=== PATIENT | female | born 1945 | race Caucasian/White ===

== ENCOUNTER → 2016-12-23 | Outpatient (CLI) | payer MEDICARE, OTHER ==
--- NOTE | 2016-12-24 10:10 | CR ---
EXAM DATE: 12/23/16 PATIENT'S AGE: 71 Patient: ASHLEIGH CUENCA Facility: [place], [place] Site . Site : 1945 Study: XRay Chest [id number] 4:31:55 PM Ordering Physician: Alisa Amaral Final Report: INDICATION: acute upper respiratory infection, unspecified TECHNIQUE: Chest 2 views COMPARISON: None FINDINGS: Cardiovascular and mediastinum: Heart size and vasculature are normal in caliber and appearance. Mediastinum is within normal limits. Lungs and pleural spaces: No focal consolidation. Hyperinflation. Eventration of the right hemidiaphragm. No sign of pleural effusion. No pneumothorax. Bones and soft tissues: Degenerative changes. IMPRESSION: No acute cardiopulmonary disease. Dictated by Binu Justin MD @ 12/23/2016 11:23:07 PM Dictated by: Binu Justin MD @ 12/23/2016 23:23:19 (Electronic Signature) Report Signed by Proxy. [facility] MED[facility] CENTERQasim
== END ==
LOC: MW.CHIM 15:49
PROVIDERS: ATTEND Internal Medicine
DX: J06.9 Acute upper respiratory infection, unspecified (principal); K21.9 Gastro-esophageal reflux disease without esophagitis; R05 Cough; J34.89 Other specified disorders of nose and nasal sinuses
CPT/HCPCS: 71020; 71020-26; G0463

== ENCOUNTER 2018-10-22 12:20 | Emergency (ER) | payer MEDICARE, OTHER ==
--- NOTE | 2018-10-22 12:29 | EDM.PDOC ---
ED HPI GENERAL MEDICAL PROBLEM - General Chief Complaint: Upper Extremity Injury/Pain Stated Complaint: INJURED HAND Time Seen by Provider: 10/22/18 12:21 Source of Information: Reports: Patient History Limitations: Reports: No Limitations - History of Present Illness INITIAL COMMENTS - FREE TEXT/NARRATIVE: History of present illness: []Patient was shoveling snow 2 days ago the tip of her shovel cut, and a crack in the cement and came to a sudden stop which jerked her right wrist. Patient's wrist started swelling today with increasing pain. Using [id number] topical pain patches without much relief. Review of systems: As per history of present illness and below otherwise all systems reviewed and negative. Past medical history: As per history of present illness and as reviewed below otherwise noncontributory. Surgical history: As per history of present illness and as reviewed below otherwise noncontributory. Social history: No reported history of drug or alcohol abuse. Family history: As per history of present illness and as reviewed below otherwise noncontributory. Physical exam: General: Well developed, well nourished in NAD HEENT: Atraumatic, normocephalic, pupils reactive, negative for conjunctival pallor or scleral icterus, mucous membranes moist, throat clear, neck supple, nontender, trachea midline. Lungs: Clear to auscultation, breath sounds equal bilaterally, chest nontender. Heart: S1S2, regular, negative for clicks, rubs, or JVD. Abdomen: NABS, Soft, nondistended, nontender. Negative for masses or hepatosplenomegaly. Negative for costovertebral tenderness. Pelvis: Stable nontender. Genitourinary: Deferred. Rectal: Deferred. Extremities: Yellow green ecchymosis and Tender over the ulnar aspect of the right lateral wrist, fingers, sensation intact . Neurovascular unremarkable. Neuro: Awake, alert, oriented. Cranial nerves II through XII unremarkable. Cerebellum unremarkable. Motor and sensory unremarkable throughout. Exam nonfocal. Skin:warm and dry Diagnostics: Right wrist x-ray-ND,distal ulnar metaphysis fx Therapeutics: Declined pain medicines, splinted ED Course: Stable Impression: Ulnar shaft fracture Prescriptions: Declined pain medicine prescriptions Plan: follow up orthopedics, Tylenol Motrin for pain Definitive disposition and diagnosis as appropriate pending reevaluation and review of above. Right Wrist Pain Score (Numeric/FACES): 5 - Related Data Allergies Allergy/AdvReac Type Severity Reaction Status Date / Time No Known Allergies Allergy Verified 11/08/14 10:46 Home Meds: Home Meds Acetaminophen [Tylenol] 2 tab PO ASDIRECTED PRN 11/08/14 [History] Lutein/Minerals/Vit A,C & E [Ocuvite] 1 tab PO DAILY 11/08/14 [History] Metoprolol Succinate [Toprol XL] 1 tab PO BRK 11/08/14 [History] Multivitamin [Multi-Vitamin Daily] 1 tab PO DAILY 11/08/14 [History] amLODIPine Besylate [Amlodipine Besylate] 1 tab PO BRK 11/08/14 [History] atorvaSTATin Calcium [Atorvastatin Calcium] 1 tab PO BEDTIME 11/08/14 [History] cycloSPORINE [Restasis] 1 applic EYEBOTH ASDIRECTED 11/08/14 [History] Review of Systems - Review of Systems Review Of Systems: ROS reveals no pertinent complaints other than HPI. ED EXAM, GENERAL - Physical Exam Exam: See Below (see HPI) Course - Vital Signs Last Recorded V/S: Last Vital Signs Temp 97.1 F 10/22/18 12:37 Pulse 73 10/22/18 12:37 Resp 16 10/22/18 12:37 BP 146/56 H 10/22/18 12:37 Pulse Ox 95 10/22/18 12:37 - Orders/Labs/Meds Orders: Active Orders 24 hr Category Date Time Status Splinting [RC] ASDIRECTED Care 10/22/18 13:21 Active Departure - Departure Time of Disposition: 13:23 Disposition: Home, Self-Care 01 Condition: Good Clinical Impression: Ulnar shaft fracture Qualifiers: Encounter type: initial encounter Fracture type: closed Fracture alignment: nondisplaced Laterality: right - Discharge Information *PRESCRIPTION DRUG MONITORING PROGRAM REVIEWED*: Not Applicable *COPY OF PRESCRIPTION DRUG MONITORING REPORT IN PATIENT VIVIANE: Not Applicable Referrals: Munir Cuellar MD [Primary Care Provider] - Ingris Walter MD [Physician] - (Next available appointment) Forms: ED Department Discharge Additional Instructions: The following information is given to patients seen in the emergency department who are being discharged to home. This information is to outline your options for follow-up care. We provide all patients seen in our emergency department with a follow-up referral. The need for follow-up, as well as the timing and circumstances, are variable depending upon the specifics of your emergency department visit. If you don't have a primary care physician on staff, we will provide you with a referral. We always advise you to contact your personal physician following an emergency department visit to inform them of the circumstance of the visit and for follow-up with them and/or the need for any referrals to a consulting specialist. The emergency department will also refer you to a specialist when appropriate. This referral assures that you have the opportunity for follow-up care with a specialist. All of these measure are taken in an effort to provide you with optimal care, which includes your follow-up. Under all circumstances we always encourage you to contact your private physician who remains a resource for coordinating your care. When calling for follow-up care, please make the office aware that this follow-up is from your recent emergency room visit. If for any reason you are refused follow-up, please contact the [facility] Emergency Department at and asked to speak to the emergency department charge nurse. [facility] [address] [place] [id number] - My Orders Last 24 Hours: My Active Orders 10/22/18 13:21 Splinting [RC] ASDIRECTED - Assessment/Plan Last 24 Hours: My Active Orders 10/22/18 13:21 Splinting [RC] ASDIRECTED
--- NOTE | 2018-10-22 13:27 | CR ---
EXAMINATION: Right wrist HISTORY: Pain COMPARISON: None TECHNIQUE: 3 views FINDINGS/IMPRESSION: There is a nondisplaced oblique distal ulnar metadiaphysis fracture. Remaining osseous structures appear osteopenic however intact. The radiocarpal alignment is preserved.
[2018-10-22 13:49] VITALS: BP 133/59
== END 2018-10-22 13:46 | disposition home or self-care (01) ==
LOC: MW.ED 12:20
DX: S52.201A Unspecified fracture of shaft of right ulna, initial encounter for closed fracture (principal); Y93.H1 Activity, digging, shoveling and raking
CPT/HCPCS: 73110-26-RT; 73110-RT; 99283-25

== ENCOUNTER 2019-01-09 11:50 | Emergency (ER) | payer MEDICARE ==
[2019-01-09 12:14] VITALS: BP 138/60
--- NOTE | 2019-01-09 12:34 | EDM.PDOC ---
ED HPI GENERAL MEDICAL PROBLEM - General Chief Complaint: Upper Extremity Injury/Pain Stated Complaint: LEFT WRIST INJURY, HAVING PAIN Time Seen by Provider: 01/09/19 12:32 Source of Information: Reports: Patient - History of Present Illness INITIAL COMMENTS - FREE TEXT/NARRATIVE: HISTORY AND PHYSICAL: History of present illness: []Short with osteoporosis and previous right wrist fracture presents after doing some exercises with a 3 pound weight she complains of ulnar pain similar to previous fracture 2 months prior shows of swelling over the distal ulna and tender to the touch no fever nausea vomiting chills sweats Review of systems: As per history of present illness and below otherwise all systems reviewed and negative. Past medical history: As per history of present illness and as reviewed below otherwise noncontributory. Surgical history: As per history of present illness and as reviewed below otherwise noncontributory. Social history: No reported history of drug or alcohol abuse. Family history: As per history of present illness and as reviewed below otherwise noncontributory. Physical exam: HEENT: Atraumatic, normocephalic, pupils reactive, negative for conjunctival pallor or scleral icterus, mucous membranes moist, throat clear, neck supple, nontender, trachea midline. Lungs: Clear to auscultation, breath sounds equal bilaterally, chest nontender. Heart: S1S2, regular, negative for clicks, rubs, or JVD. Abdomen: Soft, nondistended, nontender. Negative for masses or hepatosplenomegaly. Negative for costovertebral tenderness. Pelvis: Stable nontender. Genitourinary: Deferred. Rectal: Deferred. Extremities: Atraumatic, negative for cords or calf pain. Neurovascular unremarkable. Left wrist shoulder and elbow on affected tender over distal ulna with mild swelling entire limb is neurovascularly intact no redness or warmth no open lesion no bruising Neuro: Awake, alert, oriented. Cranial nerves II through XII unremarkable. Cerebellum unremarkable. Motor and sensory unremarkable throughout. Exam nonfocal. Diagnostics: [Left wrist 3 views ] Therapeutics: [Wrist brace as patient currently has this in her possession Rest ice ibuprofen Follow-up with orthopedist or primary care] Impression: [Left wrist injury] Definitive disposition and diagnosis as appropriate pending reevaluation and review of above. Left Wrist Pain Score (Numeric/FACES): 2 - Related Data Allergies Allergy/AdvReac Type Severity Reaction Status Date / Time No Known Allergies Allergy Verified 01/09/19 12:12 Home Meds: Home Meds Acetaminophen [Tylenol] 2 tab PO ASDIRECTED PRN 11/08/14 [History] Lutein/Minerals/Vit A,C & E [Ocuvite] 1 tab PO DAILY 11/08/14 [History] Metoprolol Succinate [Toprol XL] 1 tab PO BRK 11/08/14 [History] Multivitamin [Multi-Vitamin Daily] 1 tab PO DAILY 11/08/14 [History] amLODIPine Besylate [Amlodipine Besylate] 1 tab PO BRK 11/08/14 [History] atorvaSTATin Calcium [Atorvastatin Calcium] 1 tab PO BEDTIME 11/08/14 [History] cycloSPORINE [Restasis] 1 applic EYEBOTH ASDIRECTED 11/08/14 [History] Past Medical History Cardiovascular History: Reports: Hypertension Respiratory History: Reports: None Gastrointestinal History: Reports: None Genitourinary History: Reports: None [employer] History: Reports: Musculoskeletal History: Reports: None Neurological History: Reports: Other (See Below) Other Neuro History: [place] palsy Psychiatric History: Reports: None Endocrine/Metabolic History: Reports: Hypothyroidism Hematologic History: Reports: None Immunologic History: Reports: None Oncologic (Cancer) History: Reports: None Dermatologic History: Reports: None - Infectious Disease History Infectious Disease History: Reports: Chicken Pox, Measles, Mumps - Past Surgical History Head Surgeries/Procedures: Reports: None HEENT Surgical History: Reports: Eye Surgery, LASIK Endocrine Surgical History: Reports: Parathyroidectomy Social & Family History - Family History Family Medical History: Noncontributory - Tobacco Use Smoking Status *Q: Never Smoker - Caffeine Use Caffeine Use: Reports: Coffee, Tea - Recreational Drug Use Recreational Drug Use: No Review of Systems - Review of Systems Review Of Systems: See Below ED EXAM, GENERAL - Physical Exam Exam: See Below Course - Vital Signs Last Recorded V/S: Last Vital Signs Temp 96.9 F 01/09/19 12:12 Pulse 70 01/09/19 12:12 Resp 20 01/09/19 12:12 BP 138/60 01/09/19 12:12 Pulse Ox 96 01/09/19 12:12 Departure - Departure Time of Disposition: 12:54 Disposition: Home, Self-Care 01 Condition: Good Clinical Impression: Left wrist injury - Discharge Information Referrals: Munir Cuellar MD [Primary Care Provider] - Forms: ED Department Discharge Additional Instructions: Luis Miguel wrap Rest Ice 20 minute intervals 3 times daily as needed Ibuprofen 400 mg 3 times daily 7-10 days Follow-up with orthopedist or primary care in [address] [facility] - [facility]opedic Clinic Professional Building [address] [place] [address], [address] [place] [address] orthopedic [facility] - Primary Care [address] [place] [id number] The following information is given to patients seen in the emergency department who are being discharged to home. This information is to outline your options for follow-up care. We provide all patients seen in our emergency department with a follow-up referral. The need for follow-up, as well as the timing and circumstances, are variable depending upon the specifics of your emergency department visit. If you don't have a primary care physician on staff, we will provide you with a referral. We always advise you to contact your personal physician following an emergency department visit to inform them of the circumstance of the visit and for follow-up with them and/or the need for any referrals to a consulting specialist. The emergency department will also refer you to a specialist when appropriate. This referral assures that you have the opportunity for follow-up care with a specialist. All of these measure are taken in an effort to provide you with optimal care, which includes your follow-up. Under all circumstances we always encourage you to contact your private physician who remains a resource for coordinating your care. When calling for follow-up care, please make the office aware that this follow-up is from your recent emergency room visit. If for any reason you are refused follow-up, please contact the [facility] emergency department at and asked to speak to the emergency department charge nurse.
--- NOTE | 2019-01-09 12:45 | CR ---
INDICATION: Left wrist pain. TECHNIQUE: Wrist radiograph 3 views COMPARISON: None FINDINGS: Bones: There is preservation of the carpal rows. No acute fractures or aggressive bone lesions are identified. Ulnar minus variance of the left wrist. Joint spaces: The radiocarpal, carpal, and carpometacarpal joints are unremarkable in appearance. Soft tissues: Unremarkable. No radiopaque foreign bodies are noted. IMPRESSION: 1. Left wrist, no acute osseous injury. 2. Minimal ulnar minus variance. Dictated by Javi Gold MD @ 01/09/2019 12:44:52 PM Dictated by: Javi Gold MD @ 01/09/2019 12:44:59 (Electronically Signed)
== END 2019-01-09 13:07 | disposition home or self-care (01) ==
LOC: MW.ED 11:50
DX: S69.92XA Unspecified injury of left wrist, hand and finger(s), initial encounter (principal); I10 Essential (primary) hypertension; E03.9 Hypothyroidism, unspecified; Z79.899 Other long term (current) drug therapy; X50.0XXA Overexertion from strenuous movement or load, initial encounter
CPT/HCPCS: 73110-26-LT; 73110-LT; 99282; 99283-25